=== PATIENT | male | born 1950 | race Caucasian/White ===

== ENCOUNTER 2018-01-18 08:53 | Emergency (ER) | payer MEDICARE, BC ==
[~2018-01-18] VITALS: Ht 180.3 cm; Wt 80.7 kg
[2018-01-18] MEDS ORDERED: normal saline 1000ML IV soln IV ONE (09:20)
[2018-01-18 09:31] LABS: BASOPHILS % (AUTO) 0.5 % (0-1); EOSINOPHILS # (AUTO) 0.2 X10'3 (0-0.9); HEMATOCRIT 45.7 % (42.0-52.0); HEMOGLOBIN 15.4 g/dl (14.0-17.9); LYMPHOCYTES # (AUTO) 1.1 X10'3 (1.1-4.8); LYMPHOCYTES % (AUTO) 14.2 % (21-51); MEAN CORPUSCULAR HEMOGLOBIN 29.2 PG (27.0-31.0); MEAN CORPUSCULAR HGB CONC 33.8 % (33.0-36.5); MEAN CORPUSCULAR VOLUME 86.3 FL (78-98); MEAN PLATELET VOLUME 8.3 FL (7.4-10.4); MONOCYTES # (AUTO) 0.4 X10'3 (0-0.9); MONOCYTES % (AUTO) 4.5 % (2-12); NEUTROPHILS # (AUTO) 6.3 X10'3 (1.8-7.7); NEUTROPHILS % (AUTO) 78.8 % (42-75); PLATELET COUNT 180 X10'3 (140-440); RED BLOOD COUNT 5.29 X10'6 (4.70-6.10); RED CELL DISTRIBUTION WIDTH 13.4 % (11.5-14.5)
[2018-01-18 09:40] LABS: INR 1.1 INR; PARTIAL THROMBOPLASTIN TIME 27 SECONDS (22-32); PROTHROMBIN TIME 11.1 SECONDS (9.0-12.0)
[2018-01-18 09:46] LABS: ALANINE AMINOTRANSFERASE 47 U/L (12-78); ALBUMIN 3.8 G/DL (3.4-5.0); ALBUMIN/GLOBULIN RATIO 1.1 (1.1-1.5); ALKALINE PHOSPHATASE 100 IU/L (46-116); ANION GAP 10 (8-16); ASPARTATE AMINO TRANSFERASE 58 U/L (10-37); BILIRUBIN,TOTAL 1.1 MG/DL (0.1-1.0); BLOOD UREA NITROGEN 22 MG/DL (7-18); BUN/CREATININE RATIO 16.1 (5.4-32.0); CALCIUM 9.2 MG/DL (8.5-10.1); CHLORIDE 104 MMOL/L (99-107); CREATININE 1.37 MG/DL (0.60-1.10); GLUCOSE 135 MG/DL (70-104); POTASSIUM 3.8 MMOL/L (3.5-5.1); SODIUM 143 MMOL/L (135-145); TOTAL CARBON DIOXIDE 29.5 MMOL/L (24-32); TOTAL PROTEIN 7.4 G/DL (6.4-8.2); eGFR 52 ML/MIN
[2018-01-18 10:22] VITALS: BP 102/62
== END 2018-01-18 11:16 | disposition home or self-care (01) ==
LOC: ER 08:54
DX: E86.0 Dehydration (principal); N28.9 Disorder of kidney and ureter, unspecified; I47.1 Supraventricular tachycardia; Z88.0 Allergy status to penicillin
CPT/HCPCS: 36415; 71045; 80053; 84484; 85025; 85610; 85730; 93005; 99285; J7030

== ENCOUNTER 2020-06-13 14:20 | Inpatient (IN) | payer MEDICARE, BC ==
[~2020-06-13] VITALS: Ht 180.3 cm; Wt 81.8 kg
[~2020-06-13 14:20] MED LIST: AMLO5TAB16 PO; ASPI81TA52 PO; GABA800T11 PO; METO25TA6 PO
[2020-06-13 15:18] LABS: BASOPHILS % (AUTO) 0.8 % (0-1); EOSINOPHILS # (AUTO) 0.1 X10'3 (0-0.9); EOSINOPHILS % (AUTO) 1.5 % (0-6); HEMOGLOBIN 14.8 g/dl (14.0-17.9); LYMPHOCYTES # (AUTO) 1.3 X10'3 (1.1-4.8); LYMPHOCYTES % (AUTO) 26.9 % (21-51); MEAN CORPUSCULAR HEMOGLOBIN 28.2 PG (27.0-31.0); MEAN CORPUSCULAR HGB CONC 32.8 g/dL (33.0-36.5); MEAN CORPUSCULAR VOLUME 85.8 FL (78-98); MEAN PLATELET VOLUME 8.3 FL (7.4-10.4); MONOCYTES # (AUTO) 0.5 X10'3 (0-0.9); MONOCYTES % (AUTO) 10.5 % (2-12); NEUTROPHILS % (AUTO) 60.3 % (42-75); PLATELET COUNT 159 X10'3 (140-440); RED BLOOD COUNT 5.25 X10'6 (4.70-6.10); RED CELL DISTRIBUTION WIDTH 13.7 % (11.5-14.5); WHITE BLOOD COUNT 4.9 X10'3 (4.5-11.0)
[2020-06-13 15:30] LABS: ALANINE AMINOTRANSFERASE 25 U/L (12-78); ALBUMIN 3.5 G/DL (3.4-5.0); ALBUMIN/GLOBULIN RATIO 1.2 (1.1-1.5); ALKALINE PHOSPHATASE 92 IU/L (46-116); ANION GAP 3 (8-16); ASPARTATE AMINO TRANSFERASE 23 U/L (10-37); BILIRUBIN,TOTAL 0.8 MG/DL (0.1-1.0); BLOOD UREA NITROGEN 17 MG/DL (7-18); BUN/CREATININE RATIO 13.8 (5.4-32.0); CHLORIDE 105 MMOL/L (99-107); CREATININE 1.23 MG/DL (0.60-1.10); GLUCOSE 98 MG/DL (70-104); POTASSIUM 4.3 MMOL/L (3.5-5.1); SODIUM 139 MMOL/L (135-145); TOTAL CARBON DIOXIDE 30.7 MMOL/L (24-32); TOTAL PROTEIN 6.4 G/DL (6.4-8.2); eGFR 58 ML/MIN
[2020-06-13 15:43] LABS: MAGNESIUM 2.2 MG/DL (1.5-2.4)
[2020-06-13] MEDS: metoprolol tartrate 1mg/ml inj IV SCH ×2 (15:50→16:05)
[2020-06-13] MEDS ORDERED: aspirin 81mg tab.chew PO ONE (15:50)
[2020-06-13] MEDS ORDERED: metoprolol tartrate 1mg/ml inj IV ONE (15:50)
[2020-06-13] MEDS ORDERED: metoprolol tartrate 50mg tablet PO ONE (15:50)
[2020-06-13] MEDS ORDERED: normal saline 1000ML IV soln IVB ONE (15:50)
[2020-06-13] MEDS ORDERED: LOSA50TA3 PO (16:37)
[2020-06-13] MEDS ORDERED: magnesium Cl slow-release 64mg tablet PO PRN (16:40)
[2020-06-13] MEDS ORDERED: potassium Cl 20 mEq SR tablet PO PRN ×2 (16:40)
[2020-06-13] MEDS ORDERED: magnesium 2GM in 50ml NS 50 ML IV PRN (16:40)
[2020-06-13] MEDS ORDERED: acetaminophen 325mg tablet PO PRN ×2 (16:40)
[2020-06-13] MEDS ORDERED: magnesium 4gm in 100ml NS 100 ML IV PRN (16:40)
[2020-06-13] MEDS ORDERED: potassium CL 10mEq/100ml bag 100 ML IV PRN ×2 (16:40)
[2020-06-13] MEDS ORDERED: ondansetron/PF 4mg/2ml inj IV PRN (16:40)
[2020-06-13] MEDS ORDERED: docusate sod 100mg capsule PO PRN (16:40)
[2020-06-13] MEDS ORDERED: gabapentin 300mg capsule PO SCH (17:00)
[2020-06-13 17:05] LABS: PARTIAL THROMBOPLASTIN TIME 31 SECONDS (22-32)
[2020-06-13] MEDS: normal saline 1000ml 1,000 ML IV SCH (17:40)
--- NOTE | 2020-06-13 17:46 | NUR ---
Patient in room . I have received report from FINN Beltran and had the opportunity to ask questions. Awaiting pt's arrival to [facility].
[2020-06-13 17:55] VITALS: BP 148/76
--- NOTE | 2020-06-13 17:55 | NUR ---
Pt arrived from ED, ambulated with standby assistance to bed. Alert and oriented to room. BLL, SRx2, non skid socks on. First set of vitals Temp 97.7 HR 60 R 13 02 99room air BP 148/76 left arm Pain 0/10
--- NOTE | 2020-06-13 18:00 | NUR ---
Patient in room PCU [id number]. I have received report from Jacquelyn BRISENO and had the opportunity to ask questions and assume patient care.
--- NOTE | 2020-06-13 18:24 | NUR ---
Problems reprioritized. Patient report given, questions answered & plan of care reviewed with FINN Resendiz. Pt resting comfortably, all needs met at this time.
[2020-06-13] MEDS: K and/or MAG REPLACEMENT MC SCH (20:00)
[2020-06-13] MEDS: gabapentin 300mg capsule PO SCH (20:37)
[2020-06-13] MEDS: heparin, porcine 5000 units/ml vial SQ SCH (20:38)
[2020-06-13] MEDS ORDERED: losartan 50mg tablet PO SCH (21:00)
[2020-06-13] MEDS ORDERED: temazepam 15mg capsule PO PRN (21:00)
[2020-06-13 22:00] VITALS: BP 126/78
[2020-06-14 02:00] VITALS: BP 123/70
[2020-06-14 03:11] LABS: BASOPHILS % (AUTO) 0.8 % (0-1); EOSINOPHILS # (AUTO) 0.1 X10'3 (0-0.9); EOSINOPHILS % (AUTO) 2.2 % (0-6); HEMATOCRIT 42.7 % (42.0-52.0); HEMOGLOBIN 13.9 g/dl (14.0-17.9); LYMPHOCYTES # (AUTO) 1.4 X10'3 (1.1-4.8); LYMPHOCYTES % (AUTO) 34.4 % (21-51); MEAN CORPUSCULAR HGB CONC 32.5 g/dL (33.0-36.5); MEAN CORPUSCULAR VOLUME 86.3 FL (78-98); MEAN PLATELET VOLUME 8.7 FL (7.4-10.4); MONOCYTES # (AUTO) 0.4 X10'3 (0-0.9); MONOCYTES % (AUTO) 9.6 % (2-12); NEUTROPHILS # (AUTO) 2.2 X10'3 (1.8-7.7); PLATELET COUNT 140 X10'3 (140-440); RED BLOOD COUNT 4.94 X10'6 (4.70-6.10); RED CELL DISTRIBUTION WIDTH 14.1 % (11.5-14.5); WHITE BLOOD COUNT 4.2 X10'3 (4.5-11.0)
[2020-06-14 03:27] LABS: ALANINE AMINOTRANSFERASE 21 U/L (12-78); ALBUMIN/GLOBULIN RATIO 1.2 (1.1-1.5); ALKALINE PHOSPHATASE 73 IU/L (46-116); ANION GAP 8 (8-16); ASPARTATE AMINO TRANSFERASE 21 U/L (10-37); BILIRUBIN,TOTAL 0.9 MG/DL (0.1-1.0); BLOOD UREA NITROGEN 17 MG/DL (7-18); CALCIUM 8.5 MG/DL (8.5-10.1); CHLORIDE 106 MMOL/L (99-107); GLUCOSE 83 MG/DL (70-104); POTASSIUM 3.8 MMOL/L (3.5-5.1); SODIUM 139 MMOL/L (135-145); TOTAL PROTEIN 5.6 G/DL (6.4-8.2); eGFR 74 ML/MIN
[2020-06-14 06:00] VITALS: BP 124/63
--- NOTE | 2020-06-14 06:15 | NUR ---
Problems reprioritized. Patient report given, questions answered & plan of care reviewed with German BRISENO.
[2020-06-14] MEDS: normal saline 1000ml 1,000 ML IV SCH (06:36)
[2020-06-14] MEDS: K and/or MAG REPLACEMENT MC SCH (07:02)
[2020-06-14] MEDS: heparin, porcine 5000 units/ml vial SQ SCH (07:25)
[2020-06-14] MEDS: gabapentin 300mg capsule PO SCH (07:25)
[2020-06-14] MEDS ORDERED: losartan 50mg tablet PO SCH (08:00)
[2020-06-14] MEDS ORDERED: GABA800T11 PO (09:49)
--- NOTE | 2020-06-14 12:19 | NUR ---
Dischaged. PIV out and tele returned. Med called into [facility]. [facility] on follow and sick sinus and 1 degree block. Id band cut off. Wheeled out to car with belongings. Safe for DC per Magu.
--- NOTE | 2020-06-15 10:58 | NUR ---
Case management DC follow up: LM/VM re post DC status cardiology issues; questions, concerns,
== END 2020-06-14 11:20 | disposition home or self-care (01) | DRG 310 ==
LOC: ER 14:21 → ED HOLD 16:38 → PCU 3S 17:58
PROVIDERS: ADMIT Internal Medicine; ATTEND Internal Medicine
DX: I49.5 Sick sinus syndrome (principal); G62.9 Polyneuropathy, unspecified; I12.9 Hypertensive chronic kidney disease with stage 1 through stage 4 chronic kidney disease, or unspecified chronic kidney disease; I44.0 Atrioventricular block, first degree; N18.3 Chronic kidney disease, stage 3 (moderate); T44.7X5A Adverse effect of beta-adrenoreceptor antagonists, initial encounter; Z80.3 Family history of malignant neoplasm of breast; Z88.0 Allergy status to penicillin; Z88.8 Allergy status to other drugs, medicaments and biological substances; Y92.89 Other specified places as the place of occurrence of the external cause
CPT/HCPCS: 36415; 71045; 80053; 83735; 83880; 84484; 85025; 85610; 85730; 87081; 93005; 93306; 99285; G0378; J1644; J3490; J7030

== ENCOUNTER 2021-06-07 21:51 | Emergency (ER) | payer BC, MEDICARE ==
[~2021-06-07] VITALS: Ht 180.3 cm; Wt 82.3 kg
[~2021-06-07 21:51] MED LIST changes: -AMLO5TAB16 PO; -ASPI81TA52 PO; +LOSA50TA3 PO; -METO25TA6 PO
[2021-06-07 23:20] VITALS: BP 177/94
[2021-06-08 00:01] LABS: BASOPHILS % (AUTO) 0.6 % (0-1); EOSINOPHILS # (AUTO) 0.1 X10'3 (0-0.9); HEMATOCRIT 45.1 % (42.0-52.0); HEMOGLOBIN 15.2 g/dl (14.0-17.9); LYMPHOCYTES # (AUTO) 1.2 X10'3 (1.1-4.8); LYMPHOCYTES % (AUTO) 22.1 % (21-51); MEAN CORPUSCULAR HEMOGLOBIN 29.2 PG (27.0-31.0); MEAN CORPUSCULAR HGB CONC 33.8 g/dL (33.0-36.5); MEAN CORPUSCULAR VOLUME 86.5 FL (78-98); MEAN PLATELET VOLUME 8.4 FL (7.4-10.4); MONOCYTES # (AUTO) 0.5 X10'3 (0-0.9); MONOCYTES % (AUTO) 8.9 % (2-12); NEUTROPHILS # (AUTO) 3.7 X10'3 (1.8-7.7); NEUTROPHILS % (AUTO) 66.4 % (42-75); PLATELET COUNT 167 X10'3 (140-440); RED BLOOD COUNT 5.22 X10'6 (4.70-6.10); RED CELL DISTRIBUTION WIDTH 13.5 % (11.5-14.5); WHITE BLOOD COUNT 5.6 X10'3 (4.5-11.0)
[2021-06-08 00:19] LABS: ALANINE AMINOTRANSFERASE 27 U/L (12-78); ALBUMIN 3.9 G/DL (3.4-5.0); ALBUMIN/GLOBULIN RATIO 1.3 (1.1-1.5); ALKALINE PHOSPHATASE 101 IU/L (46-116); ANION GAP 6 (8-16); ASPARTATE AMINO TRANSFERASE 23 U/L (10-37); BILIRUBIN,TOTAL 0.7 MG/DL (0.1-1.0); BLOOD UREA NITROGEN 15 MG/DL (7-18); BUN/CREATININE RATIO 12.9 (5.4-32.0); CALCIUM 9.2 MG/DL (8.5-10.1); CHLORIDE 102 MMOL/L (99-107); CREATININE 1.16 MG/DL (0.60-1.10); GLUCOSE 106 MG/DL (70-104); POTASSIUM 3.9 MMOL/L (3.5-5.1); SODIUM 137 MMOL/L (135-145); TOTAL CARBON DIOXIDE 28.9 MMOL/L (24-32); TOTAL PROTEIN 6.9 G/DL (6.4-8.2); eGFR 62 ML/MIN
[2021-06-08 01:17] LABS: CLARITY,URINE CLEAR (Clear); COLOR,URINE STRAW (Yellow); GLUCOSE, URINE NEGATIVE (Neg); KETONES,URINE NEGATIVE (Neg); LEUKOCYTE ESTERASE ,URINE NEGATIVE (Neg); NITRITES, URINE NEGATIVE (Neg); OCCULT BLOOD,URINE NEGATIVE (Neg); PROTEIN,URINE NEGATIVE (Neg); UROBILINOGEN,URINE 0.2 E.U/dL (0.2-1.0)
[2021-06-08 01:18] LABS: UA COLLECTION TYPE CLN CATCH MIDSTREAM
== END 2021-06-08 00:51 | disposition home or self-care (01) ==
LOC: ER 21:51
DX: R07.9 Chest pain, unspecified (principal); R11.0 Nausea; R42 Dizziness and giddiness; Z88.0 Allergy status to penicillin; Z88.1 Allergy status to other antibiotic agents; Z88.8 Allergy status to other drugs, medicaments and biological substances; I10 Essential (primary) hypertension
CPT/HCPCS: 36415; 71045; 80053; 81003; 83880; 84484; 85025; 93005; 99285

== ENCOUNTER 2022-12-15 12:29 | Emergency (ER) | payer MEDICARE, BC ==
[~2022-12-15] VITALS: Ht 180.3 cm; Wt 79.5 kg
[2022-12-15 12:51] LABS: BASOPHILS % (AUTO) 0.5 % (0-1); EOSINOPHILS # (AUTO) 0.1 X10'3 (0-0.9); EOSINOPHILS % (AUTO) 2.7 % (0-6); HEMATOCRIT 44.3 % (42.0-52.0); HEMOGLOBIN 14.8 g/dl (14.0-17.9); LYMPHOCYTES # (AUTO) 1.1 X10'3 (1.1-4.8); LYMPHOCYTES % (AUTO) 28.1 % (21-51); MEAN CORPUSCULAR HEMOGLOBIN 28.6 PG (27.0-31.0); MEAN CORPUSCULAR HGB CONC 33.4 g/dL (33.0-36.5); MEAN CORPUSCULAR VOLUME 85.5 FL (78-98); MEAN PLATELET VOLUME 7.4 FL (7.4-10.4); MONOCYTES # (AUTO) 0.6 X10'3 (0-0.9); MONOCYTES % (AUTO) 15.2 % (2-12); NEUTROPHILS # (AUTO) 2.1 X10'3 (1.8-7.7); NEUTROPHILS % (AUTO) 53.5 % (42-75); PLATELET COUNT 145 X10'3 (140-440); RED BLOOD COUNT 5.18 X10'6 (4.70-6.10); RED CELL DISTRIBUTION WIDTH 13.5 % (11.5-14.5)
[2022-12-15 13:16] LABS: ALANINE AMINOTRANSFERASE 22 U/L (12-78); ALBUMIN 3.8 G/DL (3.4-5.0); ALBUMIN/GLOBULIN RATIO 1.2 (1.1-1.5); ALKALINE PHOSPHATASE 113 IU/L (46-116); ANION GAP 5 (8-16); ASPARTATE AMINO TRANSFERASE 25 U/L (10-37); BILIRUBIN,TOTAL 0.9 MG/DL (0.1-1.0); BLOOD UREA NITROGEN 17 MG/DL (7-18); BUN/CREATININE RATIO 17.9 (5.4-32.0); CALCIUM 9.4 MG/DL (8.5-10.1); CHLORIDE 97 MMOL/L (99-107); CREATININE 0.95 MG/DL (0.60-1.10); GLUCOSE 97 MG/DL (70-104); POTASSIUM 3.6 MMOL/L (3.5-5.1); SODIUM 134 MMOL/L (135-145); TOTAL CARBON DIOXIDE 32.3 MMOL/L (24-32); TOTAL PROTEIN 6.9 G/DL (6.4-8.2); eGFR 78 ML/MIN
[2022-12-15 16:07] VITALS: BP 169/91
[2022-12-15 18:13] LABS: TOTAL CELLS COUNTED 100
[2022-12-15 18:14] LABS: PLATELET ESTIMATE NORMAL; ROULEAUX 1+
[2022-12-15 18:15] LABS: POIKILOCYTOSIS 1+
== END 2022-12-15 16:08 | disposition home or self-care (01) ==
LOC: ER 12:29
DX: R07.89 Other chest pain (principal); M79.18 Myalgia, other site; I10 Essential (primary) hypertension; Z88.0 Allergy status to penicillin; Z88.1 Allergy status to other antibiotic agents; Z79.899 Other long term (current) drug therapy
CPT/HCPCS: 36415; 71045; 80053; 83735; 83880; 84484; 85007; 85008; 85025; 93005; 99285

== ENCOUNTER 2023-02-05 14:05 | Emergency (ER) | payer MEDICARE, BC ==
[~2023-02-05] VITALS: Ht 180.3 cm; Wt 71.2 kg
[2023-02-05 14:18] LABS: BASOPHILS % (AUTO) 0.7 % (0-1); EOSINOPHILS # (AUTO) 0.1 X10'3 (0-0.9); EOSINOPHILS % (AUTO) 2.2 % (0-6); HEMATOCRIT 47.8 % (42.0-52.0); HEMOGLOBIN 15.9 g/dl (14.0-17.9); LYMPHOCYTES # (AUTO) 1.2 X10'3 (1.1-4.8); LYMPHOCYTES % (AUTO) 19.8 % (21-51); MEAN CORPUSCULAR HEMOGLOBIN 28.7 PG (27.0-31.0); MEAN CORPUSCULAR HGB CONC 33.4 g/dL (33.0-36.5); MEAN CORPUSCULAR VOLUME 86.1 FL (78-98); MEAN PLATELET VOLUME 7.6 FL (7.4-10.4); MONOCYTES # (AUTO) 0.6 X10'3 (0-0.9); MONOCYTES % (AUTO) 10.7 % (2-12); NEUTROPHILS # (AUTO) 3.9 X10'3 (1.8-7.7); NEUTROPHILS % (AUTO) 66.6 % (42-75); PLATELET COUNT 180 X10'3 (140-440); RED BLOOD COUNT 5.55 X10'6 (4.70-6.10); RED CELL DISTRIBUTION WIDTH 13.6 % (11.5-14.5); WHITE BLOOD COUNT 5.9 X10'3 (4.5-11.0)
[2023-02-05 14:32] LABS: ALANINE AMINOTRANSFERASE 27 U/L (12-78); ALBUMIN 3.9 G/DL (3.4-5.0); ALBUMIN/GLOBULIN RATIO 1.2 (1.1-1.5); ALKALINE PHOSPHATASE 105 IU/L (46-116); ANION GAP 8 (8-16); ASPARTATE AMINO TRANSFERASE 23 U/L (10-37); BILIRUBIN,TOTAL 0.9 MG/DL (0.1-1.0); BLOOD UREA NITROGEN 18 MG/DL (7-18); BUN/CREATININE RATIO 16.2 (10.0-20.0); CALCIUM 9.3 MG/DL (8.5-10.1); CHLORIDE 99 MMOL/L (99-107); CREATININE 1.11 MG/DL (0.60-1.10); GLUCOSE 145 MG/DL (70-104); SODIUM 137 MMOL/L (135-145); TOTAL CARBON DIOXIDE 30.5 MMOL/L (24-32); TOTAL PROTEIN 7.2 G/DL (6.4-8.2); eGFR 65 ML/MIN
[2023-02-05] MEDS ORDERED: normal saline 1000ML IV soln IVB ONE (14:35)
[2023-02-05 14:38] LABS: MAGNESIUM 2.1 MG/DL (1.5-2.4)
[2023-02-05] MEDS ORDERED: metoprolol tartrate 1mg/ml inj IV ONE ×2 (14:45→15:20)
[2023-02-05] MEDS ORDERED: LOSA1TAB41 PO (14:47)
[2023-02-05] MEDS ORDERED: GABA800T11 PO (14:47)
[2023-02-05] MEDS ORDERED: METO25TA6 PO (14:47)
[2023-02-05] MEDS ORDERED: metoprolol tartrate 50mg tablet PO ONE (15:20)
[2023-02-05 16:36] VITALS: BP 154/103
== END 2023-02-05 16:39 | disposition home or self-care (01) ==
LOC: ER 14:05
DX: R00.0 Tachycardia, unspecified (principal); I10 Essential (primary) hypertension; Z88.0 Allergy status to penicillin; Z88.1 Allergy status to other antibiotic agents
CPT/HCPCS: 36415; 71045; 80053; 83735; 83880; 84484; 85025; 93005; 96374; 96376; 99285; J3490; J7030